=== PATIENT | female | born 1960 | race Caucasian/White ===

== ENCOUNTER 2019-12-12 08:47 | Outpatient (CLI) | payer OTHER, SELFPAY ==
--- NOTE | 2019-12-12 08:54 | MM_ITS ---
WS: [id number] SCREENING DIGITAL MAMMOGRAM WITH CAD HISTORY: SCREENING COMPARISON: 10/15/2015, 11/23/2018, 11/09/2017 and 10/27/2016 Bilateral CC and MLO views submitted. Computer aided detection analyzed. Breast composition: There are scattered areas of fibroglandular density. There is a new asymmetry see n within the central breast best on the CC projection. This asymmetry measures 8 mm and is slightly s piculated. There is some adjacent distortion. LEFT breast: Spot compression views (CC and MLO). True ML. Ultrasound to follow if abnormality guera العلي MM/[place] [id number] IMPRESSION: BI-RADS: 0-Incomplete: Need additional imaging evaluation FOLLOW UP: Need Additional Imaging
== END 2019-12-12 08:48 | disposition home or self-care (01) ==
LOC: RADSHAW 08:47
PROVIDERS: Family Provider Family Medicine; PCP Family Medicine; Visit Provider Family Medicine
DX: Z12.31 Encounter for screening mammogram for malignant neoplasm of breast (principal)
CPT/HCPCS: 77067

== ENCOUNTER 2020-01-06 15:17 | Outpatient (CLI) | payer OTHER, SELFPAY ==
--- NOTE | 2020-01-06 15:32 | US_ITS ---
WS: [id number] ADDITIONAL VIEWS LEFT MAMMOGRAM LEFT BREAST ULTRASOUND HISTORY: LT BREAST ASYMMETRY COMPARISON: 11/23/2018, 11/09/2017 and 10/27/2016 LEFT MAMMOGRAM: Spot compression views and true ML. Asymmetry in the central LEFT breast nearly completely resolves with additional imaging. There is a v telma vague area of persistent increased density. Ultrasound to follow. LEFT BREAST ULTRASOUND 2-D and color Doppler imaging submitted. Dense fibroglandular tissue at the 12:00 axis. No suspicious mass. US/US breast LT limited* [id number] IMPRESSION: BI-RADS: 3-Probably Benign FOLLOW UP: 6 Month Follow-up Very slight persistent increased asymmetry in the central RIGHT breast on the a dditional views. Recommend 6 month mammographic follow-up. Ultrasound may be ne cessary if the asymmetry persists or becomes larger.
== END 2020-01-06 15:18 | disposition home or self-care (01) ==
LOC: RADSHAW 15:22
PROVIDERS: Family Provider Family Medicine; PCP Family Medicine; Visit Provider Family Medicine
DX: N64.89 Other specified disorders of breast (principal)
CPT/HCPCS: 76642; 77065

== ENCOUNTER → 2020-05-21 09:51 | Outpatient (BNVA) | payer OTHER, SELFPAY | PROVIDERS: Family Provider Family Medicine; PCP Family Medicine; Visit Provider Dermatology | DX: D48.9 Neoplasm of uncertain behavior, unspecified (principal); L57.0 Actinic keratosis; B07.8 Other viral warts; L82.1 Other seborrheic keratosis; L81.4 Other melanin hyperpigmentation; F17.210 Nicotine dependence, cigarettes, uncomplicated | CPT/HCPCS: 17000; 17003; 99203 ==

== ENCOUNTER → 2020-05-28 12:56 | Outpatient (BNVA) | payer OTHER, SELFPAY | PROVIDERS: Family Provider Family Medicine; PCP Family Medicine; Referring Provider Family Medicine; Visit Provider Anesthesiology Pain Medicine | DX: M51.36 Other intervertebral disc degeneration, lumbar region (principal); M47.816 Spondylosis without myelopathy or radiculopathy, lumbar region; M43.10 Spondylolisthesis, site unspecified; M54.9 Dorsalgia, unspecified; M62.830 Muscle spasm of back; F17.210 Nicotine dependence, cigarettes, uncomplicated; Z79.891 Long term (current) use of opiate analgesic | CPT/HCPCS: 99204 ==

== ENCOUNTER → 2020-06-11 09:52 | Outpatient (BNVA) | payer OTHER, SELFPAY | PROVIDERS: Family Provider Family Medicine; PCP Family Medicine; Visit Provider Dermatology | DX: D48.9 Neoplasm of uncertain behavior, unspecified (principal); F17.210 Nicotine dependence, cigarettes, uncomplicated | CPT/HCPCS: 11426; 12042; 88304; 88305 ==

== ENCOUNTER → 2020-06-25 08:48 | Outpatient (BNVA) | payer OTHER, SELFPAY | PROVIDERS: Family Provider Family Medicine; PCP Family Medicine; Visit Provider Dermatology | DX: M51.36 Other intervertebral disc degeneration, lumbar region (principal); M47.816 Spondylosis without myelopathy or radiculopathy, lumbar region; M43.10 Spondylolisthesis, site unspecified; M54.9 Dorsalgia, unspecified; M62.830 Muscle spasm of back; F17.210 Nicotine dependence, cigarettes, uncomplicated; Z79.891 Long term (current) use of opiate analgesic; Z48.02 Encounter for removal of sutures | CPT/HCPCS: 99212; 99213 ==

== ENCOUNTER 2020-07-23 10:14 | Outpatient (CLI) | payer OTHER, SELFPAY ==
--- NOTE | 2020-07-23 10:23 | MM_ITS ---
WS: [id number] LEFT DIGITAL MAMMOGRAPHY WITH CAD CLINICAL INFORMATION: 6 MO F/ULT BR ASYMM COMPARISON: January 06, 2020 TECHNIQUE: 5 views of the left breast were obtained. FINDINGS: The left breast is composed of heterogeneous fibroglandular density tissue, which can limit the detec tion of small underlying mass lesions. Again seen is the stable asymmetry in the central left breast which persists on the spot compression views and appears slightly improved from previous. Ultrasound is pending. ULTRASOUND BREAST LEFT TECHNIQUE: Ultrasound left breast focused area of concern. CLINICAL INFORMATION: 6 MO F/ULT BR ASYMM COMPARISON: None. FINDINGS: Ultrasound left breast 12:00 position 3 cm from the nipple. Dense underlying parenchymal tissue. No c ystic or solid lesions. No lesions to target for biopsy. Findings have a benign appearance. MM/[place] [id number] IMPRESSION: BI-RADS: 2-Benign FOLLOW UP: 1 Year Follow-up Recommend return to annual screening mammography.
== END 2020-07-23 10:15 | disposition home or self-care (01) ==
LOC: RADSHAW 10:16
PROVIDERS: PCP Family Medicine; Visit Provider Family Medicine
DX: N64.89 Other specified disorders of breast (principal)
CPT/HCPCS: 76642; 77065

== ENCOUNTER 2021-10-19 10:46 | Outpatient (CLI) | payer BC, SELFPAY ==
--- NOTE | 2021-10-19 10:53 | MM_ITS ---
WS: [id number] BILATERAL SCREENING DIGITAL MAMMOGRAM WITH CAD HISTORY: SCREENING COMPARISON: 07/23/2020, 01/06/2020, 11/23/2018 and 12/12/2019 Bilateral CC and MLO views submitted. Computer aided detection analyzed. Breast composition: There are scattered areas of fibroglandular density. No suspicious masses, microc alcifications or architectural distortion. Focal asymmetry of the lateral LEFT breast similar to the prior study of 12/12/2019. No new architectural distortion or asymmetries. MM/[place] [id number] IMPRESSION: BI-RADS: 2-Benign FOLLOW UP: 1 Year Follow-up
== END 2021-10-19 10:47 | disposition home or self-care (01) ==
LOC: RADSHAW 10:50
PROVIDERS: PCP Family Medicine; Visit Provider Family Medicine
DX: Z12.31 Encounter for screening mammogram for malignant neoplasm of breast (principal)
CPT/HCPCS: 77067